=== PATIENT | male | born 1960 | race African-American/Black ===

== ENCOUNTER 2017-03-15 08:21 | Day surgery (SDC) | payer BC ==
[~2017-03-15] VITALS: Ht 193 cm; Wt 125.0 kg
[~2017-03-15 08:21] MED LIST: ADALAT CC 30 MG30 MG PO; ADALAT CC 60 MG60 MG PO; AMLODIPINE BES2.5 MG PO; CALCIUM ACETAT667 MG PO; CLONIDINE1 EAC2 TD; FOSRENOL1000 MG PO; FUROSEMIDE40 MG PO; LANSOPRAZOLE15 MG PO; LOPRESSOR100 M1 PO; LOPRESSOR50 MG PO; LOSARTAN POTASS25 MG PO; NEPHRO-VITE,1 TABLET PO; PREVACID 24HR15 MG PO; RENAPLEX D PO; SENSIPAR30 MG PO
[2017-03-15 10:02] LABS: METH RESISTANT S AUREUS PCR NEGATIVE (NEGATIVE)
[2017-03-15 10:08] LABS: PROBE CHECK PASS; SPECIMEN PROCESSING CONTROL PASS
== END 2017-03-15 09:54 | disposition home or self-care (01) ==
LOC: CATH 08:21
PROVIDERS: Surgery
DX: T82.858A Stenosis of other vascular prosthetic devices, implants and grafts, initial encounter (principal); Y83.2 Surgical operation with anastomosis, bypass or graft as the cause of abnormal reaction of the patient, or of later complication, without mention of misadventure at the time of the procedure; I12.0 Hypertensive chronic kidney disease with stage 5 chronic kidney disease or end stage renal disease; N18.6 End stage renal disease; Z99.2 Dependence on renal dialysis; Z98.84 Bariatric surgery status; Z88.8 Allergy status to other drugs, medicaments and biological substances
CPT/HCPCS: 87641; C1725; C1769; C1874; C1894; J1644; J2250; J3010

== ENCOUNTER → 2017-09-08 | Outpatient (CLI) | payer BC ==
[~2017-09-08] VITALS: Ht 193 cm; Wt 118.6 kg
[~2017-09-08] MED LIST changes: +VELPHORO500 MG PO
[2017-09-08 13:14] LABS: ANION GAP 10 MEQ/L (2-14); CHLORIDE 96 MEQ/L (99-109); POTASSIUM 4.5 MEQ/L (3.7-5.4); SAMPLE HEMOLYSIS CHECK 0; SAMPLE ICTERIC CHECK 0; SAMPLE LIPEMIA CHECK 0; SODIUM 139 MEQ/L (136-147)
[2017-09-08 13:19] LABS: GFR ESTIMATE (CALCULATED) 12 mL/min/; GLUCOSE 107 mg/dL (70-99); UREA NITROGEN (BUN) 33 mg/dL (9-23)
== END | disposition home or self-care (01) ==
LOC: AMB 08-18 09:30
PROVIDERS: Anesthesiology
PROC: 0DJD8ZZ Inspection of Lower Intestinal Tract, Via Natural or Artificial Opening Endoscopic (ICD-10-PCS; principal; 2017-09-08)
DX: Z12.11 Encounter for screening for malignant neoplasm of colon (principal); K64.1 Second degree hemorrhoids; I10 Essential (primary) hypertension; N26.9 Renal sclerosis, unspecified; Z99.2 Dependence on renal dialysis; K21.9 Gastro-esophageal reflux disease without esophagitis
CPT/HCPCS: 80048; 93005; J2250; J3010